=== PATIENT | male | born 1985 | race Caucasian/White ===

== ENCOUNTER 2019-11-12 19:57 | Emergency (ER) | payer SELFPAY ==
[~2019-11-12] VITALS: Ht 177.8 cm; Wt 90.9 kg
[2019-11-12 20:11] VITALS: BP 151/92; TEMP 97.5
[2019-11-12] MEDS ORDERED: NORCO 325 MG-51 TAB PO (21:51)
[2019-11-12 22:00] VITALS: PULSE 86
== END 2019-11-12 22:00 | disposition home or self-care (01) ==
LOC: COL.ER 19:57
DX: S82.301A Unspecified fracture of lower end of right tibia, initial encounter for closed fracture (principal); S30.810A Abrasion of lower back and pelvis, initial encounter; S70.312A Abrasion, left thigh, initial encounter; S90.812A Abrasion, left foot, initial encounter; F17.210 Nicotine dependence, cigarettes, uncomplicated; R40.2412 Glasgow coma scale score 13-15, at arrival to emergency department; V29.9XXA Motorcycle rider (driver) (passenger) injured in unspecified traffic accident, initial encounter; Y92.411 Interstate highway as the place of occurrence of the external cause
CPT/HCPCS: J1170; J2270; Q4045